=== PATIENT | female | born 1970 | race Hispanic/Latino ===

== ENCOUNTER 2023-07-31 12:42 | Inpatient (IN) | payer BC ==
[~2023-07-31] VITALS: Ht 154.9 cm; Wt 98.4 kg
[2023-07-31] MEDS: BELLADONNA ALK/PHENOBARBITAL 5 ML UDC PO STA (14:11)
[2023-07-31] MEDS: MAGNESIUM/ALUMINUM/SIMETHICONE 30 ML UDC PO ONE (14:14)
[2023-07-31] MEDS: LIDOCAINE VISC 2% SOLN 15 ML UDC PO ONE (14:14)
[2023-07-31 14:25] LABS: BASOPHILS % 0.5 % (0.0-1.0); EOSINOPHILS # (AUTO) 0.1 (0.0-0.4); EOSINOPHILS % 0.8 % (0.0-6.0); HEMATOCRIT 33.1 % (34.2-44.1); HEMOGLOBIN 9.6 g/dL (12.0-16.0); LYMPHOCYTES # (AUTO) 1.1 (1.0-3.2); LYMPHOCYTES % 13.2 % (18.0-39.1); MEAN CORPUSCULAR HEMOGLOBIN 17.9 pg (28-32); MEAN CORPUSCULAR VOLUME 61.6 fL (81-99); MONOCYTES # (AUTO) 0.4 (0.2-0.8); MONOCYTES % 5.2 % (4.4-11.3); NEUTROPHILS # (AUTO) 6.8 (2.1-6.9); NEUTROPHILS % 80.1 % (38.7-80.0); PLATELET COUNT 288 x10e3/uL (140-360); RED BLOOD COUNT 5.37 x10e6/uL (3.6-5.1); RED CELL DISTRIBUTION WIDTH 21.5 % (11.7-14.4); WHITE BLOOD COUNT 8.53 x10e3/uL (4.8-10.8)
[2023-07-31 14:41] LABS: ALANINE AMINOTRANSFERASE 669 IU/L (0-55); ALBUMIN 3.7 g/dL (3.5-5.0); ALBUMIN/GLOBULIN RATIO 0.8 (0.8-2.0); ALKALINE PHOSPHATASE 274 IU/L (40-150); ANION GAP 16.9 mmol/L (8-16); BILIRUBIN,TOTAL 6.4 mg/dL (0.2-1.2); BLOOD UREA NITROGEN 10 mg/dL (7-26); BUN/CREATININE RATIO 11 (6-25); CALCIUM 9.5 mg/dL (8.4-10.2); CARBON DIOXIDE 21 mmol/L (22-29); CHLORIDE 101 mmol/L (98-107); CREATININE, SERUM 0.87 mg/dL (0.57-1.11); EST GLOMERULAR FILTRATION RATE 80 ML/MIN (>=60); GLUCOSE 254 mg/dL (74-118); POTASSIUM 3.9 mmol/L (3.5-5.1); SODIUM 135 mmol/L (136-145); TOTAL PROTEIN 8.2 g/dL (6.5-8.1)
[2023-07-31 14:47] LABS: TROPONIN I < 0.001 ng/mL (0-0.300)
[2023-07-31 15:01] LABS: LIPASE 1772 U/L (8-78)
[2023-07-31] MEDS: ONDANSETRON HCL INJ 2MG/ML 2ML 2 MG/ML VIAL IV STA (15:16)
[2023-07-31] MEDS: Morphine 4mg INJECTION 4 MG/ML INJ IV ONE (15:17)
[2023-07-31] MEDS: SODIUM CHLORIDE 0.9% 1000ML 1,000 ML IV SCH ×2 (15:19→16:46)
[2023-07-31] MEDS: METRONIDAZOLE 750MG/NS 150ML 150 ML IV SCH (16:46)
[2023-07-31 17:19] LABS: % IRON SATURATION 4 % (15-50); IRON 21 ug/dL (50-170); TOTAL IRON BINDING CAPACITY 598 ug/dL (261-478); TRANSFERRIN 427 mg/dL (180-382)
[2023-07-31 17:25] VITALS: PULSE 72; RESP 16; O2SAT 98
[2023-07-31 20:00] VITALS: BP 134/69; PULSE 73; RESP 18; TEMP 98.1; O2SAT 96
[2023-07-31] MEDS ORDERED: IOPAMIDOL 370 MG/ML 100 ML INFUS..BTL INJ ONE (21:13)
[2023-07-31] MEDS ORDERED: ATIVAN0.5 MG PO (22:09)
[2023-07-31] MEDS ORDERED: PAROXETINE HCL20 MG PO (22:09)
[2023-07-31 22:10] VITALS: BP 134/72; PULSE 72; RESP 16; TEMP 98.3; O2SAT 100
[2023-07-31] MEDS ORDERED: DEXTROSE 50% SYRINGE 50 ML IV PRN (23:00)
[2023-08-01] VITALS (9 sets, daily range): BP systolic 110–135; BP diastolic 50–72; PULSE 71–79; RESP 16–21; TEMP 97.3–99.2; O2SAT 95–100
[2023-08-01] MEDS: ACETAMIN/BUTALBITAL/CAFFEINE TAB PO PRN (00:06)
[2023-08-01 05:46] LABS: BASOPHILS % 0.2 % (0.0-1.0); EOSINOPHILS # (AUTO) 0.1 (0.0-0.4); EOSINOPHILS % 0.7 % (0.0-6.0); HEMATOCRIT 31.2 % (34.2-44.1); HEMOGLOBIN 8.5 g/dL (12.0-16.0); LYMPHOCYTES # (AUTO) 1.3 (1.0-3.2); LYMPHOCYTES % 13.9 % (18.0-39.1); MEAN CORPUSCULAR HEMOGLOBIN 17.3 pg (28-32); MEAN CORPUSCULAR HGB CONC 27.2 g/dL (31-35); MEAN CORPUSCULAR VOLUME 63.7 fL (81-99); MONOCYTES # (AUTO) 0.7 (0.2-0.8); MONOCYTES % 6.9 % (4.4-11.3); NEUTROPHILS # (AUTO) 7.3 (2.1-6.9); NEUTROPHILS % 77.9 % (38.7-80.0); PLATELET COUNT 250 x10e3/uL (140-360); RED CELL DISTRIBUTION WIDTH 21.1 % (11.7-14.4); WHITE BLOOD COUNT 9.41 x10e3/uL (4.8-10.8)
[2023-08-01 06:09] LABS: ALBUMIN/GLOBULIN RATIO 0.8 (0.8-2.0); ANION GAP 15.6 mmol/L (8-16); BILIRUBIN,TOTAL 2.4 mg/dL (0.2-1.2); CALCIUM 8.8 mg/dL (8.4-10.2); CREATININE, SERUM 0.71 mg/dL (0.57-1.11); MAGNESIUM 1.9 MG/DL (1.3-2.1); POTASSIUM 3.6 mmol/L (3.5-5.1); TOTAL PROTEIN 6.7 g/dL (6.5-8.1)
[2023-08-01 06:33] LABS: CHOL/HDL RATIO 4.4 (3.0-3.6)
[2023-08-01] MEDS: INSULIN LISPRO 100 UNIT/1 ML 3ML VIAL SQ SCH (07:30)
[2023-08-01] MEDS: IRON SUCROSE 100 MG in SODIUM CHLORIDE 0.9% 100 ML IV SCH (08:44)
[2023-08-01 09:11] LABS: PLATELET ESTIMATE ADEQUATE; PLATELET MORPHOLOGY COMMENT NORMAL; RBC MORPHOLOGY COMMENT NORMAL
[2023-08-01] MEDS: Morphine 4mg INJECTION 4 MG/ML INJ IV PRN (11:05)
[2023-08-01] MEDS: ONDANSETRON HCL INJ 2MG/ML 2ML 2 MG/ML VIAL IV PRN (11:05)
[2023-08-01] MEDS ORDERED: FENTANYL CITRATE/PF 100MCG/2 ML INJ ONE (15:52)
[2023-08-01] MEDS ORDERED: Morphine 10mg syringe 10 MG/ML INJ ONE (15:52)
[2023-08-02] VITALS (8 sets, daily range): BP systolic 113–129; BP diastolic 61–69; PULSE 63–85; RESP 12–20; TEMP 97.4–98.8; O2SAT 95–100
[2023-08-02 07:10] LABS: BASOPHILS % 0.1 % (0.0-1.0); EOSINOPHILS # (AUTO) 0.2 (0.0-0.4); EOSINOPHILS % 1.5 % (0.0-6.0); HEMATOCRIT 27.7 % (34.2-44.1); HEMOGLOBIN 7.5 g/dL (12.0-16.0); LYMPHOCYTES # (AUTO) 1.5 (1.0-3.2); LYMPHOCYTES % 14.5 % (18.0-39.1); MEAN CORPUSCULAR HEMOGLOBIN 17.6 pg (28-32); MEAN CORPUSCULAR HGB CONC 27.1 g/dL (31-35); MEAN CORPUSCULAR VOLUME 64.9 fL (81-99); MONOCYTES # (AUTO) 0.8 (0.2-0.8); NEUTROPHILS # (AUTO) 7.6 (2.1-6.9); PLATELET COUNT 210 x10e3/uL (140-360); RED BLOOD COUNT 4.27 x10e6/uL (3.6-5.1); RED CELL DISTRIBUTION WIDTH 21.2 % (11.7-14.4); WHITE BLOOD COUNT 10.15 x10e3/uL (4.8-10.8)
[2023-08-02 07:59] LABS: ALBUMIN 2.7 g/dL (3.5-5.0); ALBUMIN/GLOBULIN RATIO 0.8 (0.8-2.0); ANION GAP 14.3 mmol/L (8-16); BILIRUBIN,TOTAL 1.3 mg/dL (0.2-1.2); CALCIUM 8.4 mg/dL (8.4-10.2); CREATININE, SERUM 0.68 mg/dL (0.57-1.11); MAGNESIUM 1.8 MG/DL (1.3-2.1); TOTAL PROTEIN 6.3 g/dL (6.5-8.1)
[2023-08-02 08:01] LABS: POTASSIUM 3.3 mmol/L (3.5-5.1)
[2023-08-02] MEDS ORDERED: SODIUM CHLORIDE 0.9% 250ML 250 ML IV ONE (08:45)
[2023-08-02] MEDS ORDERED: KETOROLAC TROMETHAMINE 30 MG/ML VIAL ONE (10:30)
[2023-08-02] MEDS ORDERED: DEXAMETHASONE SOD PHOS INJ 4 MG/ML SDV ONE (10:30)
[2023-08-02] MEDS ORDERED: ROCURONIUM BROMIDE 10 MG/ML 5ML VIAL IV ONE (10:30)
[2023-08-02] MEDS ORDERED: ONDANSETRON HCL INJ 2MG/ML 2ML 2 MG/ML VIAL ONE (10:30)
[2023-08-02] MEDS ORDERED: PROPOFOL IV EMULSION 10 MG/ML 20 ML VIAL ONE (10:30)
[2023-08-02] MEDS ORDERED: SUCCINYLCHOLINE CHLORIDE 20 MG/ML 10ML VIAL ONE (10:30)
[2023-08-02] MEDS ORDERED: LIDOCAINE HCL 2% LOCAL INJ 5 ML SDV VIAL INJ ONE (10:30)
[2023-08-02] MEDS ORDERED: SEVOFLURANE INHAL SOLN 250 ML PEN BTL ONE (10:30)
[2023-08-02] MEDS ORDERED: METOCLOPRAMIDE HCL 10 MG/2ML VIAL ONE (10:30)
[2023-08-02] MEDS ORDERED: HYDROCODONE/APAP 7.5MG-325MG 1 EA TAB PO PRN (14:15)
[2023-08-02] MEDS ORDERED: HYDROMORPHONE 1MG/1ML INJ IV PRN (14:15)
[2023-08-02] MEDS: SODIUM CHLORIDE 0.9% 1000ML 1,000 ML IV SCH (15:15)
[2023-08-02] MEDS: KCL 20 MEQ PACKET/ ORAL SOLN PO ONE (16:41)
[2023-08-03] VITALS (7 sets, daily range): BP systolic 110–128; BP diastolic 60–69; PULSE 54–72; RESP 16–20; TEMP 97.5–98.6; O2SAT 97–100
[2023-08-03 08:07] LABS: BASOPHILS % 0.2 % (0.0-1.0); EOSINOPHILS % 0.1 % (0.0-6.0); HEMOGLOBIN 7.5 g/dL (12.0-16.0); LYMPHOCYTES # (AUTO) 1.2 (1.0-3.2); LYMPHOCYTES % 12.5 % (18.0-39.1); MEAN CORPUSCULAR HEMOGLOBIN 18.1 pg (28-32); MEAN CORPUSCULAR HGB CONC 27.8 g/dL (31-35); MEAN CORPUSCULAR VOLUME 65.2 fL (81-99); MONOCYTES # (AUTO) 0.6 (0.2-0.8); MONOCYTES % 6.5 % (4.4-11.3); NEUTROPHILS # (AUTO) 7.8 (2.1-6.9); NEUTROPHILS % 79.7 % (38.7-80.0); PLATELET COUNT 195 x10e3/uL (140-360); RED BLOOD COUNT 4.14 x10e6/uL (3.6-5.1); RED CELL DISTRIBUTION WIDTH 22.1 % (11.7-14.4); WHITE BLOOD COUNT 9.79 x10e3/uL (4.8-10.8)
[2023-08-03 08:32] LABS: ALBUMIN 2.6 g/dL (3.5-5.0); ALBUMIN/GLOBULIN RATIO 0.8 (0.8-2.0); ANION GAP 13.6 mmol/L (8-16); BILIRUBIN,TOTAL 0.6 mg/dL (0.2-1.2); CALCIUM 8.5 mg/dL (8.4-10.2); CREATININE, SERUM 0.67 mg/dL (0.57-1.11); POTASSIUM 3.6 mmol/L (3.5-5.1)
[2023-08-03] MEDS ORDERED: CEFTRIAXONE 1 GM VIAL ONE (09:06)
[2023-08-03] MEDS ORDERED: ENOXAPARIN SOD INJ 40 MG/0.4 ML SYR SC ONE (09:06)
[2023-08-03] MEDS ORDERED: Sodium Chloride 0.9% 50ML Bag ONE (09:06)
[2023-08-03] MEDS: ENOXAPARIN SOD INJ 40 MG/0.4 ML SYR SC SCH (16:37)
[2023-08-03] MEDS ORDERED: LEVOFLOXACIN250 MG PO (18:21)
== END 2023-08-03 18:38 | disposition home or self-care (01) | DRG 417 ==
LOC: ER 13:00 → ERHOLD 16:04 → MED/SURG2 20:30
PROVIDERS: ADMIT Internal Medicine; ATTEND Internal Medicine
PROC: 0FT44ZZ Resection of Gallbladder, Percutaneous Endoscopic Approach (ICD-10-PCS; principal; 2023-08-02 12:29)
DX: K80.00 Calculus of gallbladder with acute cholecystitis without obstruction (principal); K85.10 Biliary acute pancreatitis without necrosis or infection; Z68.41 Body mass index [BMI] 40.0-44.9, adult; K76.0 Fatty (change of) liver, not elsewhere classified; E11.9 Type 2 diabetes mellitus without complications; Z79.4 Long term (current) use of insulin; F41.9 Anxiety disorder, unspecified; E66.01 Morbid (severe) obesity due to excess calories; D50.9 Iron deficiency anemia, unspecified; K82.8 Other specified diseases of gallbladder
CPT/HCPCS: 36415; 71045; 74177; 74181; 76705; 80053; 80061; 82607; 82728; 82746; 82948; 83036; 83540; 83690; 83735; 84466; 84484; 85025; 85045; 86850; 86900; 86920; 88304; 93005; 94799; 99284; C1766; J0330; J0696; J1100; J1650; J1885; J2001; J2270; J2405; J2765; J7030; Q9967; U0002

== ENCOUNTER → 2024-02-25 | Day surgery (SDC) | payer BC ==
[~2024-02-25] MED LIST: ATIVAN0.5 MG PO; GLIPIZIDE ER5 MG PO; LEVOFLOXACIN250 MG PO; LEVOTHYROXINE50 MCG PO; METFORMIN HCL500 MG PO; PAROXETINE HCL20 MG PO
[2024-02-25] MEDS: LACTATED RINGER'S 1,000 ML ONE (09:05)
[2024-02-25 11:15] VITALS: BP 151/88; PULSE 68; RESP 16; O2SAT 98
== END | disposition home or self-care (01) ==
LOC: OR 08:42
PROVIDERS: ATTEND Internal Medicine Gastroenterology
DX: Z12.11 Encounter for screening for malignant neoplasm of colon (principal); K57.30 Diverticulosis of large intestine without perforation or abscess without bleeding; K62.89 Other specified diseases of anus and rectum; K64.8 Other hemorrhoids; K85.90 Acute pancreatitis without necrosis or infection, unspecified; D64.9 Anemia, unspecified; E11.9 Type 2 diabetes mellitus without complications; E03.9 Hypothyroidism, unspecified; E66.01 Morbid (severe) obesity due to excess calories; F41.9 Anxiety disorder, unspecified; F32.A Depression, unspecified; F17.290 Nicotine dependence, other tobacco product, uncomplicated; Z01.810 Encounter for preprocedural cardiovascular examination; Z79.84 Long term (current) use of oral hypoglycemic drugs; Z79.899 Other long term (current) drug therapy
CPT/HCPCS: 36415; 45380; 82948; 93005; J7121; 45378